=== PATIENT | female | born 1955 | race Caucasian/White ===

== ENCOUNTER → 2018-07-08 | Outpatient (CLI) | payer OTHER ==
[~2018-07-08] VITALS: Ht 160 cm; Wt 107.6 kg
[~2018-07-08] MED LIST: AMLODIPINE BESY10 MG PO; BASAGLAR K100 UNIT/1 SUBQ; CYMBALTA60 MG PO; DETROL LA4 MG PO; GABAPENTIN800 M1 PO; HUMALOG KW100 UNIT/1; HYDROCHLOROTHIA25 M2 PO; LIPITOR 20 MG T20 M1 PO; MOBIC15 MG PO; OMEPRAZOLE 20 M20 M1 PO; OXYCODONE-APAP1 EAC6 PO; PERCOCET 7.5-31 EACH PO; PIOGLITAZONE30 MG PO; PROLIA60 MG/1 ML SQ; QUINAPRIL HCL40 MG PO; TOLTERODINE TART4 MG PO; VITAMIN B12-FO1 EAC1 PO; ZYRTEC 10 MG TA10 MG PO
--- NOTE | ~2018-07-08 | HPC ---
[facility] [place] [place] [address] PAIN MANAGEMENT CONSULTATION Name: ROMIE SLAON Room #: REG AMIE Acharya.#: [id number] Admission: 07/08/18 Attend Phys: Eloy Beatty MD Discharge: Date of : 57 Report #: [id number] THIS REPORT FOR: //name// CC: Mara Jj DO Eloy Beatty DATE OF SERVICE: 07/08/2018 Followup visit for chronic intractable back pain and radiculopathy. Morbid obesity and opioid medication management. The patient is a patient who has been followed at the [facility]. She is here at [place] for her first visit here in my transition to [place]. She complains of a daily pain of a 7/10, continuous, burning, shooting, cramping, aching, sharp, stabbing and pounding. Pain is in her low back, hips, knees and ankles. It is worsened by weather and is relieved by her pain medication. She is grateful for her pain medication, which she receives under terms of a written opioid agreement. We renewed that agreement today and I performed a buccal drug screen as it has been sometime since she has been tested for medication. Her dose is oxycodone 7.5/325, 325 mg of Tylenol. She takes no more than 4 tablets a day for a total of 30 mg or 45 morphine milligram equivalents. I reviewed her old records and she was on much higher dose previously including methadone. We have been able to taper her off of those medications without significant changes in her pain. We will continue to try and use the lowest most effective dose of pain medication. The patient is quite limited at home. Her does most of the work around the house including help with cleaning and cooking. Because of her obesity and/or weakness and pain in her legs, she has difficulty standing for long and she has to use a walker. She also has diabetic neuropathy, which contributes to all of her symptoms in the lower extremities. MEDICATIONS: Detrol, quinapril, pioglitazone, oxycodone, meloxicam, hydrochlorothiazide, gabapentin, Prolia, Cymbalta, Zyrtec, Lipitor, amlodipine. ALLERGIES: GLUCOPHAGE. PAST MEDICAL HISTORY: Significant for diabetes, ankle surgery in 2013, wrist surgery in 2016. Morbid obesity. SOCIAL HISTORY: She denies tobacco, uses alcohol, drinks 1 glass of alcohol per day. PHYSICAL EXAMINATION: Mildly depressed female. Blood pressure 186/87, heart [facility] [address] [place] [address] PAIN MANAGEMENT CONSULTATION Name: ROMIE SLOAN Room #: [facility]#: [id number] Admission: 07/08/18 Attend Phys: Eloy Beatty MD Discharge: Date of : 57 Report #: [id number] rate 95, respirations 18. Her BMI is 42. She is able to move from sitting to standing position, but it is a great work for her to get up even using her arms from the arm chair. When she is standing she is stable. She is a moderate fall risk. She has difficulty with weightbearing without the walker and without it she would clearly be at great fall risk. She uses it at all times. There is pain and tenderness across the low back. Positive straight leg raising. Her legs are massive. Straight leg raising reproduces discomfort bilaterally in both legs in a broad distribution primarily in the hamstring. IMPRESSION: 1. Chronic low back pain with radiculopathy. 2. Management of high risk medication under terms of written opioid agreement. PLAN: I renewed her medication and performed a buccal drug screen today. I plan to see her back in the pain clinic in 3 months. By: [id number] Eloy Beatty MD /nt
[2018-07-08 12:47] VITALS: BP 186/87
--- NOTE | 2018-07-08 13:02 | NUR ---
Pain Clinic Assessment: 1. History of Osteoarthritis: Not Applicable History of Rheumatoid Arthritis: Not Applicable 2. Height: 5 ft. 3 in. 160.0 cm. Weight: 237.2 lb. oz. 107.593 kg. Patient's BMI: 42.0 3. Vital Signs: BP: 186/87 Pulse: 95 Resp: 18 Temp: 02 Sat: 98 ECG Mon: 4. Pain Intensity: 7 5. Fall Risk: Dizziness: N Needs help standing or walking: Y Fallen in the last 3 months: Y Fall risk comments: 6. Patient on Blood Thinner: None 7. History of Hypertension: Y 8. Opioid Therapy greater than 6 weeks: N Opiate Contract Signed: 9. Risk Assessment Tool Provided: LOW RISK 06/27 10. Functional Assessment Tool: 11. Recreational Drug Use: Never Drug Type: Tobacco Use: Never Smoker Tobacco Type: Amount or Packs/day: How Many Years: Alcohol Use: Yes Frequency: Daily Quant: 1
== END ==
LOC: PAIN 07:10
DX: M54.16 Radiculopathy, lumbar region (principal); G89.4 Chronic pain syndrome; E66.01 Morbid (severe) obesity due to excess calories; Z79.891 Long term (current) use of opiate analgesic; Z79.899 Other long term (current) drug therapy; Z68.41 Body mass index [BMI] 40.0-44.9, adult

== ENCOUNTER → 2018-10-03 | Outpatient (CLI) | payer OTHER ==
[~2018-10-03] VITALS: Ht 160 cm; Wt 109.0 kg
[~2018-10-03] MED LIST changes: +KLOR-CON 1010 MEQ PO; +ZANTAC 150MG T150 MG PO
--- NOTE | ~2018-10-03 | HPC ---
[facility] [address] [address] PAIN MANAGEMENT CONSULTATION Name: ROMIE SLOAN Room #: REG AMIE Acharya.#: [id number] Admission: 10/03/18 ������������������ Attend Phys: Eloy Beatty MD Discharge: ������������������ Date of : 57 Report #: [id number] THIS REPORT FOR: //name// CC: Mara Beatty DATE OF SERVICE: 10/03/2018 Followup visit for chronic pain and debility. Chronic low back pain with radiculopathy, morbid obesity and now tension type headaches. I am seeing the patient at [facility] today. She previously followed with Dr. Rodrigo Ng who left town. I have resumed his prescribing of medication for chronic pain. She is currently on oxycodone 7.5/325 taking 4 tablets a day. Without the medication, she feels that she would not be able to get up at all. With the medications, she is able to do some basic simple day to day care, transfers and other things, but has not gotten out of the house much in the last year. Her is with her today. She has been seen by the neurologist and has an upcoming appointment for further evaluation. She has had MRI of her head due to some cognitive changes recently. They are also looking for reasons why she may be developing some occipital headaches. She has not had these previously. Today, she reports pain intensity of an 8/10 with medication, burning, shooting, stabbing, sharp pain in the low back radiating into her hips and legs. Pain is worsened by weather, walking and activity and relieved by recliner. Pain medications she is grateful for. She denies side effects other than constipation, which we reviewed today. She will remain on stool softeners and laxatives. She carefully safeguards her medication per terms of an opioid agreement, which have been established through our clinic. Dr. Ng was her original prescriber and I will continue to follow his course of treatment for the time being. PHYSICAL EXAMINATION: She has a ____. Her blood pressure is 157/77, heart rate 85, respirations 20. She is 5 feet 3 inches, 240 pounds with a BMI of 42.6. She can barely move from sitting to standing position. As she stands, she appears unstable and is clearly a fall risk. She is fortunately not on a blood thinner. She can take only a couple of steps. Tenderness across the low back. There is heaviness in her legs. Straight leg raising bilaterally is positive. Generalized weakness is noted throughout the extremities and this is more from debility than it is from a focal injury. IMPRESSION: 1. Chronic low back pain with radiculopathy. 2. Morbid obesity. 3. Debility. [facility] [address] [place] [address] PAIN MANAGEMENT CONSULTATION Name: ROMIE SLOAN Room #: REG Travis Johnson#: [id number] Admission: 10/03/18 ������������������ Attend Phys: Eloy Beatty MD Discharge: ������������������ Date of : 57 Report #: [id number] 4. Management of high risk medications under terms of written opioid agreement. 5. New onset occipital headaches, likely tension type. RECOMMENDATIONS: We will continue her medications, but I have stressed that the medication should be part of an overall plan to improve her mobility particularly after she takes the medication and feels that her pain is under better control. I have recommended home therapy. They will begin trying to do some of this on their own at home doing some short walking sessions as we discussed. We also talked about some strengthening exercises for the legs that can be performed in the chair. She was prescribed oxycodone 7.5/325, #120 tablets per month. This equates to an MME of 45. She will safeguard her medications. We will plan to see her back in the pain clinic in 3 months. ��������������������������������������������� ���������������������������������������� By: ��������������������������������������������� [id number] Eloy Beatty MD /nt
[2018-10-03 10:35] VITALS: BP 157/77
--- NOTE | 2018-10-03 10:58 | NUR ---
Pain Clinic Assessment: 1. History of Osteoarthritis: Not Applicable History of Rheumatoid Arthritis: Not Applicable 2. Height: 5 ft. 3 in. 160.0 cm. Weight: 240.4 lb. oz. 109.045 kg. Patient's BMI: 42.6 3. Vital Signs: BP: 157/77 Pulse: 85 Resp: 20 Temp: 02 Sat: 99 ECG Mon: 4. Pain Intensity: 8 5. Fall Risk: Dizziness: N Needs help standing or walking: Y Fallen in the last 3 months: N Fall risk comments: 6. Patient on Blood Thinner: None 7. History of Hypertension: Y 8. Opioid Therapy greater than 6 weeks: Y Opiate Contract Signed: 07/08/18 9. Risk Assessment Tool Provided: LOW RISK 06/27 10. Functional Assessment Tool: 11. Recreational Drug Use: Never Drug Type: Tobacco Use: Never Smoker Tobacco Type: Amount or Packs/day: How Many Years: Alcohol Use: Yes Frequency: Daily Quant: 1 GLASS/WINE
== END ==
LOC: RAD 06:57 → PAIN 06:57
DX: M47.812 Spondylosis without myelopathy or radiculopathy, cervical region (principal); M43.12 Spondylolisthesis, cervical region; M54.16 Radiculopathy, lumbar region; R53.81 Other malaise; R51 Headache; E66.01 Morbid (severe) obesity due to excess calories; Z68.41 Body mass index [BMI] 40.0-44.9, adult; Z87.891 Personal history of nicotine dependence; Z79.899 Other long term (current) drug therapy

== ENCOUNTER → 2019-01-30 | Outpatient (CLI) | payer OTHER ==
[~2019-01-30] VITALS: Ht 160 cm; Wt 111.6 kg
[~2019-01-30] MED LIST changes: +ACTOS 30 MG TAB30 M1 PO
[2019-01-30 10:08] VITALS: BP 141/54
--- NOTE | 2019-01-30 10:18 | NUR ---
Pain Clinic Assessment: 1. History of Osteoarthritis: LEFT HIP LEFT HIP History of Rheumatoid Arthritis: Not Applicable 2. Height: 5 ft. 3 in. 160.0 cm. Weight: 246.0 lb. oz. 111.585 kg. Patient's BMI: 43.6 3. Vital Signs: BP: 141/54 Pulse: 78 Resp: 15 Temp: 02 Sat: 98 ECG Mon: 4. Pain Intensity: 8 5. Fall Risk: Dizziness: N Needs help standing or walking: Y Fallen in the last 3 months: N Fall risk comments: USES WALKER 6. Patient on Blood Thinner: None 7. History of Hypertension: Y 8. Opioid Therapy greater than 6 weeks: Y Opiate Contract Signed: 07/08/18 9. Risk Assessment Tool Provided: LOW RISK 06/27 10. Functional Assessment Tool: 11. Recreational Drug Use: Never Drug Type: Tobacco Use: Former Smoker Tobacco Type: Amount or Packs/day: How Many Years: Alcohol Use: Yes Frequency: Daily Quant: WINE Q HS
--- NOTE | 2019-02-03 08:41 | HPC ---
[facility] [address] [address] [place] [address] PAIN MANAGEMENT CONSULTATION Name: ROMIE SLOAN Room #: REG AMIE Johnson#: [id number] Admission: 01/30/19 Attend Phys: Shoshana Lieberman Discharge: Date of : 57 Report #: [id number] THIS REPORT FOR: //name// CC: Shoshana Moss DATE OF SERVICE: 01/30/2019 CHIEF COMPLAINT: Chronic low back pain with radiculopathy, morbid obesity. HISTORY OF PRESENT ILLNESS: This is a 63-year-old female who returned to the pain clinic today for refill of medications that she uses to help treat her chronic ongoing back pain. She tells me it also radiates into her bilateral hips and down her legs. She is complaining of increased knee pain today as well as some right ankle pain. The patient reports her pain score as 8/10, worse with walking and activity as well as weather changes. The medications she finds very beneficial to help treat her burning, shooting sharp pain. The patient would like a refill of her oxycodone that she uses to help with all this discomfort. She tells me she has recently seen a psychologist as well as a neurologist, a movement disorder specialist at [facility] related to some ongoing issues that she has been having with hallucinations and difficulty with movement. ALLERGIES: METFORMIN. CURRENT LIST OF MEDICATIONS: Oxycodone 7.5/325 t.i.d. to q.i.d., potassium, Zantac, pioglitazone, gabapentin, ____, Humalog, Mobic, HCTZ, Prolia, Cymbalta, vitamin B12, Zyrtec, Lipitor, amlodipine, and Colace. PQRS: 1. The patient has osteoarthritis in her left hip. Denies rheumatoid arthritis. 2. Height is 5 feet 3 inches, weight is 246, BMI is 43. 3. VITAL SIGNS: 141/54, pulse is 78, respirations 16, oxygen sat is 98. 4. Pain score is 8/10. 5. Denies dizziness. Does use a walker at all times. Has not fallen in the last 3 months. 6. The patient is not on any blood thinners, does take medicine for hypertension. 7. Opioid therapy is greater than 6 weeks; therefore, an opioid signed contract is on the chart. Risk assessment tool is low. Functional assessment is 56/70. 8. Recreational drug use, she denies. She is a former smoker and does drink a glass of wine every night. We did check the prescription monitoring system. [place] [address] PAIN MANAGEMENT CONSULTATION Name: SLOANROMIE J Room #: REG AMIE Johnson#: [id number] Admission: 01/30/19 Attend Phys: Shoshana Lieberman Discharge: Date of : 57 Report #: [id number] appropriately for her medications. PHYSICAL EXAMINATION: GENERAL: This is a 63-year-old female who appears her stated age. She is morbidly obese, complaining of pain score today of 8/10. She appears older than her stated age. HEENT: Normocephalic, atraumatic. Extraocular eye muscles are intact. Mucous membranes are moist. MUSCULOSKELETAL: She is able to move from sitting to standing using the arms of the chair. She uses a walker at all times. She has difficulty with weightbearing. She has a varus deformity in her right foot with ambulation. Pain and tenderness across her low back, positive straight leg raising. Her legs are extremely large in size. Lower extremity strength judged to be 4/5. She is very deconditioned. IMPRESSION: 1. Chronic low back pain with radiculopathy. 2. Management of high risk medications under terms of written opioid agreement, possible varus deformity, right foot. 3. Morbid obesity. 4. Debilitation. 5. Management of high risk medications under terms of written opioid agreement. We reviewed the fact that opiate medications are being used to provide analgesia adequate to support activities of daily living, not attempting to achieve a specific pain score on the 0-10 Visual Analog Scale. The current opiate medications are providing sufficient analgesia to allow the patient to participate in activities of daily living. The patient is not exhibiting any aberrant behavior suggestive of drug diversion. The patient is not having any adverse reactions to medications. The patient is not suffering from daytime somnolence or mental acuity changes. The patient is managing opiate-induced constipation with appropriate yoqn-fof-mbunjuw agents and dietary considerations. The patient was counseled on concern for caution with operating a motor vehicle while using opiate medications. A physical exam was performed and the patient's functional status was evaluated. All patients with back pain were advised against the bed rest greater than 4 days and were advised to return to normal activities. Pain score assessment was noted and the treatment plan was reviewed with the patient. All current medications, both prescribed and OTC were reviewed and reconciled on the electronic medical record. Tobacco screening was accomplished and smoking cessation was advised when indicated. BMI was noted and diet/exercise modification was recommended for all patients following outside normal parameters. I reviewed with the patient today their responsibilities to [address] [address] PAIN MANAGEMENT CONSULTATION Name: ROMIE SLOAN Room #: REG AMIE Johnson#: [id number] Admission: 01/30/19 Attend Phys: Shoshana Lieberman Discharge: Date of : 57 Report #: [id number] prescription medications, reviewed their responsibility to utilize medications only as prescribed by the physician. They are to seek and receive pain medications only from 1 physician group ( [facility]). They are to use 1 pharmacy and keep the clinic informed if they change pharmacies. Their responsibilities include making followup visits in a timely fashion and to avoid abrupt discontinuation of medication usage. Their responsibilities further include bringing their medications (bottles from the pharmacy with residual pills) to the visit for possible confirmation of pill counts and the patient understands it is their responsibility to submit to random drug screens to ensure both that the medications prescribed are present, and that no other controlled substances are present. All prescriptions provided today were generated electronically. PLAN: 1. We will continue her medications as she is using for her low back pain. We encouraged her to be active as possible. The patient tells me she did ambulate with her sister, but then she was very sore the next day. I encouraged her to continue walking on a daily basis. Her body would get use to this exercise and therefore then she would not have the soreness after exercising from 1 day. The patient verbalizes understanding. Scripts given today for oxycodone 7.5/325, #120 for today, 4-week and 8-week release. This will last the patient at least 3 months. The patient's morphine mEq is 45, which is below the CDC guidelines. 2. We encouraged the patient to see her psychiatric social worker supervisor regarding her various deformities of her right foot and ankle. She has been seeing a psychiatric social worker supervisor for ongoing foot issues. She has a shoe lift at home. We encouraged her to take that with her to her next appointment at the end of the month. 3. The patient will return in 3 months' time. The patient is seen today with Dr. Eloy Beatty who collaborated care as well. <ELECTRONICALLY SIGNED> By: Shoshana Lieberman 02/03/19 0841 [id number] Shoshana Lieberman /racheal
== END ==
LOC: PAIN 06:49
DX: M54.16 Radiculopathy, lumbar region (principal); E66.01 Morbid (severe) obesity due to excess calories; Z88.8 Allergy status to other drugs, medicaments and biological substances; Z79.899 Other long term (current) drug therapy; Z79.4 Long term (current) use of insulin; Z79.891 Long term (current) use of opiate analgesic

== ENCOUNTER → 2019-05-19 | Outpatient (CLI) | payer OTHER ==
[~2019-05-19] VITALS: Ht 160 cm; Wt 112.8 kg
[~2019-05-19] MED LIST changes: -ACTOS 30 MG TAB30 M1 PO; +OXYCODON-ACETA1 EAC1 PO; +OXYCODONE-APAP1 TAB PO; +PERCOCET 7.5-31 EAC1 PO; +PIOGLITAZONE15 MG
[2019-05-19 10:16] VITALS: BP 172/75
--- NOTE | 2019-05-19 10:36 | NUR ---
Pain Clinic Assessment: 1. History of Osteoarthritis: BILAT HIPS History of Rheumatoid Arthritis: DENIES 2. Height: 5 ft. 3 in. 160.0 cm. Weight: 248.6 lb. oz. 112.764 kg. Patient's BMI: 44.0 3. Vital Signs: BP: 172/75 Pulse: 90 Resp: 16 Temp: 02 Sat: 98 ECG Mon: 4. Pain Intensity: 8 5. Fall Risk: Dizziness: Y Needs help standing or walking: Y Fallen in the last 3 months: N Fall risk comments: USES WALKER 6. Patient on Blood Thinner: None 7. History of Hypertension: Y 8. Opioid Therapy greater than 6 weeks: Y Opiate Contract Signed: 07/08/18 9. Risk Assessment Tool Provided: LOW RISK 06/27 10. Functional Assessment Tool: 11. Recreational Drug Use: Never Drug Type: Tobacco Use: Former Smoker Tobacco Type: Amount or Packs/day: How Many Years: Alcohol Use: Yes Frequency: Daily Quant: WINE
--- NOTE | 2019-05-20 08:49 | HPC ---
[facility] [address] [place] [address] PAIN MANAGEMENT CONSULTATION Name: ROMIE SLOAN Room #: REG AMIE Johnson#: [id number] Admission: 05/19/19 Attend Phys: Shoshana Lieberman Discharge: Date of : 57 Report #: [id number] THIS REPORT FOR: //name// CC: Shoshana Lieberman Mara Jj DATE OF SERVICE: 05/19/2019 CHIEF COMPLAINT: Chronic low back pain with radiculopathy. HISTORY OF PRESENT ILLNESS: This is a 64-year-old female who returns to the pain clinic today for refill of her medications that she uses to help treat her ongoing chronic low back pain as well as bilateral hips and leg pain. She finds that the medications do help, but she continues to rate her pain at 8/10. She feels that walking and even lying down do increase her pain, especially in her knees and hips. It is a chronic burning, sharp, stabbing pain. She does use a walker at all times to help with ambulation. She denies any problems with constipation as long as she uses stool softeners. She does not have any issues with daytime sleepiness. Per her report she has recently started insulin pump that she is finding beneficial in keeping her blood sugars at a reasonable number. Her does help her calculate her carbs and enter them in her new insulin machines. ALLERGIES: METFORMIN. CURRENT LIST OF MEDS: Oxycodone 7.5/325 four times a day, Actos 15 mg daily, potassium 10 mEq daily, Zantac 150 mg at bedtime, gabapentin 800 mg 3 times a day, Detrol LA 4 mg daily, Humalog Q KwikPen, Mobic 15 mg daily, hydrochlorothiazide 25 mg b.i.d., Prolia daily, Cymbalta 60 mg b.i.d., folic acid, Zyrtec, Lipitor 20 mg daily and amlodipine 10 mg daily. PQRS: 1. She has osteoarthritis in her knees and hips. Denies any rheumatoid arthritis. 2. Height is 5 feet 3 inches, weight is 248, BMI is 44. 3. Vital signs 172/75, pulse is 90, respirations 16, oxygen sat is 98. 4. Pain score is 8/10. Complains of slight dizziness. Does use a walker at all times. Has not fallen in the last 3 months. 5. The patient is not on any blood thinners, but does take medicine for hypertension. 6. Opioid therapy is greater than 6 weeks; therefore, an opioid signed contract is on the chart. Her risk assessment tool is low. Functional assessment is 56/70. 7. Recreational drug use, she denies. She is a former smoker and occasionally drinks alcohol. [address] [address] PAIN MANAGEMENT CONSULTATION Name: ROMIE SLOAN Eric Room #: REG Travis Johnson#: [id number] Admission: 05/19/19 Attend Phys: Shoshana Lieberman Discharge: Date of : 57 Report #: [id number] According to the prescription monitoring system, the patient is filling appropriately for her medications. She is due this week. We will check a random drug screen on her at her next visit. She does safeguard her medications at all times. PHYSICAL EXAMINATION: GENERAL: This is a 64-year-old morbidly obese female who appears her stated age, placing her current pain score at 8/10 today. She is alert and orientated. HEENT: Normocephalic, atraumatic. Extraocular eye muscles are intact. Mucous membranes are moist. MUSCULOSKELETAL: She uses a walker at all times. Her gait is slow. She does use the arm chairs to move from sitting to standing position. She has a varus deformity in her right foot with ambulation. She has pain and tenderness in her lumbar spine that is positive for straight leg raising. Lower extremity strength judged to be 4/5. She is very deconditioned. IMPRESSION: 1. Chronic low back pain with radiculopathy. 2. Morbid obesity. 3. Debilitating condition. 4. Management of high risk medications under terms of written opioid agreement. We reviewed the fact that opiate medications are being used to provide analgesia adequate to support activities of daily living, not attempting to achieve a specific pain score on the 0-10 Visual Analog Scale. The current opiate medications are providing sufficient analgesia to allow the patient to participate in activities of daily living. The patient is not exhibiting any aberrant behavior suggestive of drug diversion. The patient is not having any adverse reactions to medications. The patient is not suffering from daytime somnolence or mental acuity changes. The patient is managing opiate-induced constipation with appropriate qdek-qvt-lkokkrt agents and dietary considerations. The patient was counseled on concern for caution with operating a motor vehicle while using opiate medications. PLAN: 1. We discussed treatment options with the patient today. The patient's pain does increase with activity and weather. We have had quite fluctuations in our weather lately. Her pain is slightly increased, but she feels that the medications are helpful in her normal activities. We will e-prescribe those medications with Dr. Beatty today for oxycodone 7.5/325, #120 for a total of 3 months. Those will be sent to her [facility]. 2. We encouraged the patient to be as active as possible. Hopefully with her new insulin regime, she may be able to lose some weight and encouraged her to watch her diet to decrease her weight. [facility] [address] [place] [address] PAIN MANAGEMENT CONSULTATION Name: JESI SLOANELIEL Reyes Room #: REG AMIE Johnson#: [id number] Admission: 05/19/19 Attend Phys: Shoshana Lieberman Discharge: Date of : 57 Report #: [id number] 3. The patient does bring with her a new bone scan that does show some right hip osteoporosis. She is on Prolia. 4. The patient will follow up in 3 months since her current morphine mEq dose is 45 MME according to the CDC guidelines. 5. The patient is seen in collaboration with Dr. Eloy Beatty today. <ELECTRONICALLY SIGNED> By: Shoshana Lieberman 05/20/19 0849 [id number] Shoshana Lieberman /racheal
== END ==
LOC: PAIN 06:43
DX: M54.5 Low back pain (principal); M54.16 Radiculopathy, lumbar region; Z79.891 Long term (current) use of opiate analgesic

== ENCOUNTER → 2019-09-11 | Outpatient (CLI) | payer OTHER ==
[~2019-09-11] VITALS: Ht 160 cm; Wt 112.3 kg
[~2019-09-11] MED LIST changes: +FREESTYLE LIBR1 EAC2 MISCELL; +[UNRECOGNIZED DRUG - OTHER] SUBQ
[2019-09-11 10:36] VITALS: BP 150/74
--- NOTE | 2019-09-11 10:58 | NUR ---
Pain Clinic Assessment: 1. History of Osteoarthritis: BILAT HIPS History of Rheumatoid Arthritis: DENIES 2. Height: 5 ft. 3 in. 160.0 cm. Weight: 247.6 lb. oz. 112.311 kg. Patient's BMI: 43.9 3. Vital Signs: BP: 150/74 Pulse: 80 Resp: 20 Temp: 02 Sat: 98 ECG Mon: 4. Pain Intensity: 8 5. Fall Risk: Dizziness: Y Needs help standing or walking: Y Fallen in the last 3 months: Y Fall risk comments: USES WALKER 6. Patient on Blood Thinner: None 7. History of Hypertension: Y 8. Opioid Therapy greater than 6 weeks: Y Opiate Contract Signed: 07/08/18 9. Risk Assessment Tool Provided: LOW RISK 06/27 10. Functional Assessment Tool: 11. Recreational Drug Use: Never Drug Type: Tobacco Use: Former Smoker Tobacco Type: Amount or Packs/day: How Many Years: Alcohol Use: Yes Frequency: Special Occasions Quant: 1-2
--- NOTE | 2019-09-11 15:06 | HPC ---
[facility] [address] [place] [address] PAIN MANAGEMENT CONSULTATION Name: ROMIE SLOAN Room #: [facility]#: [id number] Admission: 09/11/19 Attend Phys: Shoshana Lieberman Discharge: Date of : 57 Report #: [id number] THIS REPORT FOR: cc: Mara Jj Linda J. DO Hocker, Amanda CNS ~ DATE OF SERVICE: 09/11/2019 CHIEF COMPLAINT: Chronic low back pain with radiculopathy. HISTORY OF PRESENT ILLNESS: This is a very pleasant 64-year-old female who returns to the pain clinic today for refill on her medications that she takes for her chronic ongoing low back pain with radiculopathy. Today, she is also complaining of some right knee pain. She feels that the weather has flared her arthritis causing her to have increased pain. She also reports that she has been helping her more in the kitchen due to an injury that he has sustained, so she has been more active. Her pain score today is 8/10. It is a burning, shooting, sharp pain, worse with any activity, but the medications as well as reclining are beneficial. She denies any problems with constipation or daytime sleepiness. ALLERGIES: GLUCOPHAGE. CURRENT LIST OF MEDICATIONS: Oxycodone 7.5/325, Actos, potassium, gabapentin, Detrol, meloxicam, hydrochlorothiazide, Prolia, Cymbalta, folic acid, Zyrtec, Lipitor and amlodipine. PQRS: 1. She has arthritic changes in her bilateral hips and knees. Denies any rheumatoid arthritis. 2. Height is 5 feet 3 inches, weight is 247, BMI is 43. 3. Vital signs: Blood pressure 150/74, pulse is 80, respirations 20, oxygen sat is 98, pain score is 8/10. Complains of slight dizziness. Does use a walker at all times. The patient is not on any blood thinners, but does have history of hypertension. Her opioid therapy is greater than 6 weeks; therefore, an opioid signed contract is on the chart. Risk assessment is low. Functional assessment is 56/70. 4. Recreational drug use, she denies. She is a former smoker and occasionally drinks alcohol. According to the prescription monitoring system, the patient is filling appropriately for her medications. She is due to fill her meds today. Her morphine mEq is 45 MME or below. We will obtain a drug screen on this patient today since it has been greater than 1 year since [place] [address] PAIN MANAGEMENT CONSULTATION Name: ROMIE SLOAN Room #: REG AMIE Johnson#: [id number] Admission: 09/11/19 Attend Phys: Shoshana Lieberman Discharge: Date of : 57 Report #: [id number] PHYSICAL EXAMINATION: GENERAL: This is alert and orientated, morbidly obese, very pleasant 64-year-old female, who appears her stated age, placing her current pain score at 8/10 today. HEENT: Normocephalic, atraumatic. Extraocular eye muscles are intact. Mucous membranes are moist. MUSCULOSKELETAL: She complains of pain in her right foot with ambulation. She also has tenderness localized in her right knee today. She has tenderness in her lumbosacral region of her spine. She has positive straight leg raising on the right. Her lower extremity strength judged to be 4/5 in her lower extremities. She is deconditioned, uses a walker at all times, has a slow antalgic gait. IMPRESSION: 1. Chronic low back pain with radiculopathy. 2. Morbid obesity. 3. Debilitating condition. 4. Right knee pain. 5. Management of high risk medications under terms of written opioid agreement. We reviewed the fact that opiate medications are being used to provide analgesia adequate to support activities of daily living, not attempting to achieve a specific pain score on the 0-10 Visual Analog Scale. The current opiate medications are providing sufficient analgesia to allow the patient to participate in activities of daily living. The patient is not exhibiting any aberrant behavior suggestive of drug diversion. The patient is not having any adverse reactions to medications. The patient is not suffering from daytime somnolence or mental acuity changes. The patient is managing opiate-induced constipation with appropriate azuc-sma-ivqswnb agents and dietary considerations. The patient was counseled on concern for caution with operating a motor vehicle while using opiate medications. A physical exam was performed and the patient's functional status was evaluated. All patients with back pain were advised against the bed rest greater than 4 days and were advised to return to normal activities. Pain score assessment was noted and the treatment plan was reviewed with the patient. All current medications, both prescribed and OTC were reviewed and reconciled on the electronic medical record. Tobacco screening was accomplished and smoking cessation was advised when indicated. BMI was noted and diet/exercise modification was recommended for all patients following outside normal parameters. I reviewed with the patient today their responsibilities to safeguard prescription medications, reviewed their responsibility to utilize medications only as prescribed by the physician. They are to seek and receive pain medications only from 1 physician group ([facility]). They are to use [address] [address] PAIN MANAGEMENT CONSULTATION Name: ROMIE SLOAN Room #: REG [facility]#: [id number] Admission: 09/11/19 Attend Phys: Shoshana Lieberman Discharge: Date of : 57 Report #: [id number] pharmacy and keep the clinic informed if they change pharmacies. Their responsibilities include making followup visits in a timely fashion and to avoid abrupt discontinuation of medication usage. Their responsibilities further include bringing their medications (bottles from the pharmacy with residual pills) to the visit for possible confirmation of pill counts and the patient understands it is their responsibility to submit to random drug screens to ensure both that the medications prescribed are present, and that no other controlled substances are present. All prescriptions provided today were generated electronically. PLAN: 1. We discussed treatment options with the patient today. The patient reports some days she is taking 5 oxycodone 7.5 a day. I explained to her that we are unable to go up to that level of pain medication. We will keep her at 4 pills a day, encouraging her that when her pain is better to take less medicine, not more. If she does feel like she needs an additional pain pill on her bad "days" to take 2 extra strength Tylenol reminding her that each pill does have 325 mg of Tylenol. The patient verbalizes understanding. She does not want an increase in the amount of pills that she has. 2. We did discuss her recent insulin pump that she has received. She finds that has been very beneficial and easy to control her blood sugars on this new device. She is hopeful that she will be able to lose some weight if her blood sugars have been stabilized. Her weight has remained the same since her last visit. 3. We did discuss the Quintero-19 virus and currently that she is able to obtain her medications, but if things last for a prolonged period of time, we are unsure what the medication manufactures will do. We encouraged her to use the lowest most effective dose and to have a few extra pills. We did discuss weaning parameters, so she does not go through withdrawal if she is unable to get her medicine. The patient verbalizes understanding and hopes that this will not come to that. 3. The patient is seen in collaboration with Dr. Eloy Beatty. He did send Percocet 7.5, #120 for 3 months to her pharmacy as well as she is not in need of gabapentin today. <ELECTRONICALLY SIGNED> By: Shoshana Lieberman 09/11/19 1506 [id number] Shoshana Lieberman /nt
== END ==
LOC: PAIN 06:43
DX: M54.16 Radiculopathy, lumbar region (principal); M25.561 Pain in right knee; E66.09 Other obesity due to excess calories; Z79.891 Long term (current) use of opiate analgesic

== ENCOUNTER → 2020-01-05 | Outpatient (CLI) | payer OTHER ==
[~2020-01-05] VITALS: Ht 160 cm; Wt 110.8 kg
[~2020-01-05] MED LIST changes: +OMNIPOD1 EACH SUBQ
[2020-01-05 12:53] VITALS: BP 126/71
--- NOTE | 2020-01-05 13:12 | NUR ---
Pain Clinic Assessment: 1. History of Osteoarthritis: BILAT HIPS varsha knees History of Rheumatoid Arthritis: DENIES 2. Height: 5 ft. 3 in. 160.0 cm. Weight: 244.2 lb. oz. 110.769 kg. Patient's BMI: 43.3 3. Vital Signs: BP: 126/71 Pulse: 91 Resp: 16 Temp: 02 Sat: 96 ECG Mon: 4. Pain Intensity: 8 5. Fall Risk: Dizziness: N Needs help standing or walking: Y Fallen in the last 3 months: N Fall risk comments: USES WALKER 6. Patient on Blood Thinner: None 7. History of Hypertension: Y 8. Opioid Therapy greater than 6 weeks: Y Opiate Contract Signed: 07/08/18 9. Risk Assessment Tool Provided: 3-low risk 10. Functional Assessment Tool: 11. Recreational Drug Use: Never Drug Type: Tobacco Use: Former Smoker Tobacco Type: Cigarettes Amount or Packs/day: almost 2 ppd How Many Years: 30 Alcohol Use: Yes Frequency: Daily Quant: 1 glass wine at hs
--- NOTE | 2020-01-06 07:46 | HPC ---
[facility] [address] [place] [address] PAIN MANAGEMENT CONSULTATION Name: ROMIE SLOAN Room #: REG [facility] Patrizia.#: [id number] Admission: 01/05/20 Attend Phys: Shoshana Lieberman Discharge: Date of : 57 Report #: [id number] THIS REPORT FOR: cc: Mara Jj Linda J. DO Hocker, Amanda CNS ~ CC: Eloy Beatty MD DATE OF SERVICE: 01/05/2020 CHIEF COMPLAINT: Chronic low back pain with radiculopathy, bilateral knee pain. HISTORY OF PRESENT ILLNESS: This is a 64-year-old female who returns to the pain clinic today with her who also helps her as a caregiver. Today, she is reporting a pain score of 8/10, mostly in her knees and hips. She does have ongoing low back pain as well, stating that it bright and is a shooting pain, worse when she is doing any activity and walking. She uses a walker at all times. She is mostly sedentary and is not very active around the house. Her does do most of the cooking and cleaning, though she tries to help when able. She states that the medication as well as reclining are most beneficial. ALLERGIES: METFORMIN. CURRENT LIST OF MEDICATIONS: Insulin pump Omnipod, oxycodone 7.5/325 p.r.n., Actos, potassium, Zantac, gabapentin, Detrol, meloxicam, hydrochlorothiazide, Prolia, Cymbalta, folic acid, Zyrtec, Lipitor and amlodipine. PQRS: 1. She has bilateral hip and knee osteoarthritis. Denies any rheumatoid arthritis. 2. Height is 5 feet 3 inches, weight is 244, BMI is 43. 3. Vital signs 126/71, pulse is 91, respirations 16, oxygen sat is 96. 4. Pain score is 8/10. 5. Denies dizziness. Does use a walker at all times. Has not fallen in the last 3 months. The patient is not on any blood thinner, does have medicine for hypertension. Her opioid therapy is greater than 6 weeks. Opioid signed contract is on the chart. Risk assessment tool is low. Functional assessment is . 6. Recreational drug use, she denies. She is a former smoker and does drink alcohol at bedtime. According to the prescription monitoring system, she is filling appropriately. Her morphine milliequivalent is 45 MME. There is a recent drug screen on the chart that is appropriate as well for her medications. [address] [address] PAIN MANAGEMENT CONSULTATION Name: ROMIE SLOAN Room #: REG AMIE Johnson#: [id number] Admission: 01/05/20 Attend Phys: Shoshana Lieberman Discharge: Date of : 57 Report #: [id number] PHYSICAL EXAMINATION: GENERAL: This is alert and orientated, morbidly obese, pleasant 64-year-old female who appears her stated age, placing her current pain score at 8/10. HEENT: Normocephalic, atraumatic. Extraocular eye muscles are intact. She is wearing a mask. MUSCULOSKELETAL: She has tenderness in her bilateral knees today as well as her hips. Positive straight leg raising is on the right leg, does have lower back tenderness that radiates into her legs bilaterally. She has an antalgic gait, uses a walker at all times. She is deconditioned in her lower extremities. IMPRESSION: 1. Chronic low back pain with radiculopathy. 2. Morbid obesity. 3. Debilitating condition. 4. Bilateral knee pain. 5. Management of high risk medications under terms of written opioid agreement. We reviewed the fact that opiate medications are being used to provide analgesia adequate to support activities of daily living, not attempting to achieve a specific pain score on the 0-10 Visual Analog Scale. The current opiate medications are providing sufficient analgesia to allow the patient to participate in activities of daily living. The patient is not exhibiting any aberrant behavior suggestive of drug diversion. The patient is not having any adverse reactions to medications. The patient is not suffering from daytime somnolence or mental acuity changes. The patient is managing opiate-induced constipation with appropriate paxw-ucp-cxmctog agents and dietary considerations. The patient was counseled on concern for caution with operating a motor vehicle while using opiate medications. PLAN: 1. We discussed treatment options with the patient today. The patient finds her medications beneficial. We will refill her oxycodone 7.5/325, #120. This enables her 4 tablets a day. We will refill this for [address] Eloy Beatty send this medicine electronically. 2. We did discuss her ongoing arthritic pain in her bilateral knees. We encouraged her to try some [id number]-vzjnbzn Voltaren gel to see if that it is beneficial in helping relieve some of her discomfort, encouraging her to use it twice a day morning and at night. She does take meloxicam. I believe that it will be okay for her to continue this at a low dose. 3. The patient is seen in collaboration with Dr. Eloy Beatty. The patient will return in 3 months. <ELECTRONICALLY SIGNED> By: Shoshana Lieberman 01/06/20 0746 [id number] Shoshana Lieberman /racheal
== END ==
LOC: PAIN 07:03
PROVIDERS: ATTEND Clinical Nurse Specialist Adult Health
DX: M54.5 Low back pain (principal); G89.29 Other chronic pain; M25.562 Pain in left knee; M25.561 Pain in right knee; E66.01 Morbid (severe) obesity due to excess calories; R53.81 Other malaise; M54.10 Radiculopathy, site unspecified; M16.0 Bilateral primary osteoarthritis of hip; M17.0 Bilateral primary osteoarthritis of knee; I10 Essential (primary) hypertension; F11.90 Opioid use, unspecified, uncomplicated; Z88.8 Allergy status to other drugs, medicaments and biological substances

== ENCOUNTER → 2020-09-20 | Outpatient (CLI) | payer OTHER ==
[~2020-09-20] VITALS: Ht 160 cm; Wt 98.7 kg
[~2020-09-20] MED LIST changes: +FLOMAX0.4 MG PO; +NEURONTIN 400400 M1 PO; +PREVACID30 MG PO; +RESTASIS1 EACH OPHTHALMIC; +WELCHOL 625 MG625 MG PO
[2020-09-20 12:44] VITALS: BP 135/65
--- NOTE | 2020-09-20 13:03 | NUR ---
Pain Clinic Assessment: 1. History of Osteoarthritis: BILAT HIPS varsha knees History of Rheumatoid Arthritis: DENIES 2. Height: 5 ft. 3 in. 160.0 cm. Weight: 217.6 lb. oz. 98.703 kg. Patient's BMI: 38.6 3. Vital Signs: BP: 135/65 Pulse: 87 Resp: 16 Temp: 02 Sat: 99 ECG Mon: 4. Pain Intensity: 7 5. Fall Risk: Dizziness: Needs help standing or walking: Fallen in the last 3 months: Fall risk comments: USES WALKER 6. Patient on Blood Thinner: None 7. History of Hypertension: Y 8. Opioid Therapy greater than 6 weeks: Y Opiate Contract Signed: 07/08/18 9. Risk Assessment Tool Provided: 3-low risk 10. Functional Assessment Tool: 11. Recreational Drug Use: Never Drug Type: Tobacco Use: Former Smoker Tobacco Type: Amount or Packs/day: How Many Years: Alcohol Use: No Frequency: Quant:
== END ==
LOC: PAIN 06:59
PROVIDERS: ATTEND Clinical Nurse Specialist Adult Health
DX: M54.16 Radiculopathy, lumbar region (principal); G89.29 Other chronic pain; M25.561 Pain in right knee; M25.562 Pain in left knee; I10 Essential (primary) hypertension; E66.01 Morbid (severe) obesity due to excess calories; Z79.891 Long term (current) use of opiate analgesic; Z79.899 Other long term (current) drug therapy; Z87.891 Personal history of nicotine dependence

== ENCOUNTER → 2021-02-14 | Outpatient (CLI) | payer OTHER ==
[~2021-02-14] VITALS: Ht 160 cm; Wt 103.6 kg
[2021-02-14 11:26] VITALS: BP 143/83
--- NOTE | 2021-02-14 12:09 | NUR ---
Pain Clinic Assessment: 1. History of Osteoarthritis: BILAT HIPS varsha knees History of Rheumatoid Arthritis: DENIES 2. Height: 5 ft. 3 in. 160.0 cm. Weight: 228.4 lb. oz. 103.602 kg. Patient's BMI: 40.5 3. Vital Signs: BP: 143/83 Pulse: 94 Resp: 20 Temp: 02 Sat: 99 ECG Mon: 4. Pain Intensity: 7 5. Fall Risk: Dizziness: N Needs help standing or walking: Y Fallen in the last 3 months: Y Fall risk comments: USES WALKER 6. Patient on Blood Thinner: None 7. History of Hypertension: Y 8. Opioid Therapy greater than 6 weeks: Y Opiate Contract Signed: 07/08/18 9. Risk Assessment Tool Provided: 3-low risk 10. Functional Assessment Tool: 11. Recreational Drug Use: Never Drug Type: Tobacco Use: Former Smoker Tobacco Type: Amount or Packs/day: How Many Years: Alcohol Use: Yes Frequency: Special Occasions Quant: WINE
== END ==
LOC: PAIN 07:04
PROVIDERS: ATTEND Anesthesiology Pain Medicine
DX: G89.4 Chronic pain syndrome (principal); M19.90 Unspecified osteoarthritis, unspecified site; E66.01 Morbid (severe) obesity due to excess calories; I10 Essential (primary) hypertension; R32 Unspecified urinary incontinence; E11.9 Type 2 diabetes mellitus without complications; Z79.899 Other long term (current) drug therapy; Z79.891 Long term (current) use of opiate analgesic

== ENCOUNTER → 2021-07-21 | Outpatient (CLI) | payer OTHER ==
[~2021-07-21] VITALS: Ht 160 cm; Wt 103.8 kg
[2021-07-21 09:39] VITALS: BP 149/86
--- NOTE | 2021-07-21 09:53 | NUR ---
Pain Clinic Assessment: 1. History of Osteoarthritis: BILAT HIPS varsha knees History of Rheumatoid Arthritis: DENIES 2. Height: 5 ft. 3 in. 160.0 cm. Weight: 228.8 lb. oz. 103.783 kg. Patient's BMI: 40.5 3. Vital Signs: BP: 149/86 Pulse: 85 Resp: 18 Temp: 02 Sat: 99 ECG Mon: 4. Pain Intensity: 7 5. Fall Risk: Dizziness: N Needs help standing or walking: Y Fallen in the last 3 months: Y Fall risk comments: USES WALKER 6. Patient on Blood Thinner: None 7. History of Hypertension: Y 8. Opioid Therapy greater than 6 weeks: Y Opiate Contract Signed: 07/08/18 9. Risk Assessment Tool Provided: 3-low risk 10. Functional Assessment Tool: 11. Recreational Drug Use: Never Drug Type: Tobacco Use: Former Smoker Tobacco Type: Amount or Packs/day: How Many Years: Alcohol Use: Yes Frequency: Quant:
== END ==
LOC: PAIN 08:08
PROVIDERS: ATTEND Clinical Nurse Specialist Adult Health
DX: G89.29 Other chronic pain (principal); M12.851 Other specific arthropathies, not elsewhere classified, right hip; M12.862 Other specific arthropathies, not elsewhere classified, left knee; M12.861 Other specific arthropathies, not elsewhere classified, right knee; I10 Essential (primary) hypertension; E66.01 Morbid (severe) obesity due to excess calories; Z88.8 Allergy status to other drugs, medicaments and biological substances; Z79.4 Long term (current) use of insulin; Z79.899 Other long term (current) drug therapy